=== PATIENT | female | born 1960 | race Caucasian/White ===

== ENCOUNTER 2022-12-16 14:09 | Emergency (ER) | payer MEDICAID ==
[~2022-12-16] VITALS: Ht 177.8 cm; Wt 58.2 kg
[~2022-12-16 14:09] MED LIST: OXYC-150 PO
[2022-12-16 14:10] VITALS: BP 136/93
[2022-12-16] MEDS ORDERED: AMOX-117 PO (15:41)
[2022-12-16] MEDS ORDERED: amox tr/potassium clavulanate 875/125mg TAB PO ONE (15:45)
== END 2022-12-16 15:55 | disposition home or self-care (01) ==
LOC: ER 14:10
DX: K04.7 Periapical abscess without sinus (principal); G89.29 Other chronic pain; M54.9 Dorsalgia, unspecified
CPT/HCPCS: 99283

== ENCOUNTER 2023-01-20 10:40 | Emergency (ER) | payer MEDICAID ==
[~2023-01-20] VITALS: Ht 177.8 cm; Wt 61.4 kg
[2023-01-20 10:45] VITALS: BP 113/72
== END 2023-01-20 15:05 | disposition left against medical advice (07) ==
LOC: ER 10:40
DX: S00.531A Contusion of lip, initial encounter (principal); S10.93XA Contusion of unspecified part of neck, initial encounter; S00.219A Abrasion of unspecified eyelid and periocular area, initial encounter; Z53.21 Procedure and treatment not carried out due to patient leaving prior to being seen by health care provider; W01.0XXA Fall on same level from slipping, tripping and stumbling without subsequent striking against object, initial encounter; Y93.89 Activity, other specified; Y92.89 Other specified places as the place of occurrence of the external cause; Y99.8 Other external cause status
CPT/HCPCS: 99281

== ENCOUNTER 2023-01-23 09:38 | Emergency (ER) | payer MEDICAID ==
[~2023-01-23] VITALS: Ht 177.8 cm; Wt 59.1 kg
[2023-01-23 09:41] VITALS: BP 123/90
== END 2023-01-23 11:23 | disposition home or self-care (01) ==
LOC: ER 09:38
DX: M25.512 Pain in left shoulder (principal); Z56.0 Unemployment, unspecified
CPT/HCPCS: 71045; 99284

== ENCOUNTER 2024-10-08 16:02 | Inpatient (IN) | payer MEDICAID, OTHER ==
[~2024-10-08] VITALS: Ht 177.8 cm; Wt 49.0 kg
[2024-10-08] MEDS: HYDROcodone/acetaminophen 10/325mg tab PO ONE (16:42)
[2024-10-08] MEDS ORDERED: potassium Cl 20 mEq SR tablet PO PRN (17:45)
[2024-10-08] MEDS ORDERED: magnesium hydroxide 30ml (MOM) UD suspension PO PRN (17:45)
[2024-10-08] MEDS ORDERED: magnesium sulf-water 4G/100mL 100 ML IV PRN (17:45)
[2024-10-08] MEDS ORDERED: ondansetron/PF 4mg/2ml inj IV PRN (17:45)
[2024-10-08] MEDS ORDERED: magnesium sulf-water 2g/50mL 50 ML IV PRN (17:45)
[2024-10-08] MEDS ORDERED: potassium Cl 40MEQ/1/2NS 520ml 520 ML IV PRN (17:45)
[2024-10-08] MEDS ORDERED: mag hydrox/Alum hydrox/simeth 30ml oral suspension PO PRN (17:45)
[2024-10-08] MEDS ORDERED: HYDROcodone/acetaminophen 5mg/325mg tablet PO PRN (17:45)
[2024-10-08] MEDS ORDERED: acetaminophen 325mg tablet PO PRN (17:45)
[2024-10-08] MEDS: morphine 4 MG/ML inj SYRINge IV ONE (18:03)
[2024-10-08] MEDS: ondansetron/PF 4mg/2ml inj IV ONE (18:03)
[2024-10-08] MEDS: ringers solution, lacted 1,000 ML IV SCH (18:15)
[2024-10-08 18:24] LABS: APTT 26 SECONDS (22-32); PROTHROMBIN TIME 10.6 SECONDS (9.0-12.0)
[2024-10-08 18:27] LABS: BASOPHILS % (AUTO) 0.2 % (0-1); EOSINOPHILS % (AUTO) 0.1 % (0-6); HEMATOCRIT 41.9 % (35.0-45.0); HEMOGLOBIN 14.1 g/dl (12.0-16.0); LYMPHOCYTES # (AUTO) 0.9 X10'3 (1.1-4.8); LYMPHOCYTES % (AUTO) 6.8 % (21-51); MEAN CORPUSCULAR HEMOGLOBIN 32.9 PG (27.0-31.0); MEAN CORPUSCULAR HGB CONC 33.8 g/dL (33.0-36.5); MEAN CORPUSCULAR VOLUME 97.6 FL (78-98); MONOCYTES # (AUTO) 0.7 X10'3 (0-0.9); MONOCYTES % (AUTO) 5.3 % (2-12); NEUTROPHILS # (AUTO) 11.3 X10'3 (1.8-7.7); NEUTROPHILS % (AUTO) 87.6 % (42-75); PLATELET COUNT 158 X10'3 (140-440); RED BLOOD COUNT 4.29 X10'6 (4.20-5.60); RED CELL DISTRIBUTION WIDTH 13.5 % (11.5-14.5); WHITE BLOOD COUNT 12.9 X10'3 (4.5-11.0)
[2024-10-08] MEDS: nicotine 21mg patch - 24 hr TD ONE (19:23)
[2024-10-08] MEDS: docusate sod 100mg capsule PO SCH (19:23)
[2024-10-08 19:55] LABS: ALANINE AMINOTRANSFERASE 35 U/L (12-78); ALBUMIN 3.7 G/DL (3.4-5.0); ALBUMIN/GLOBULIN RATIO 1.1 (1.1-1.5); ALKALINE PHOSPHATASE 81 IU/L (46-116); ANION GAP 10 (8-16); ASPARTATE AMINO TRANSFERASE 25 U/L (10-37); BLOOD UREA NITROGEN 12 MG/DL (7-18); BUN/CREATININE RATIO 29.3 (10.0-20.0); CALCIUM 8.8 MG/DL (8.5-10.1); CHLORIDE 104 MMOL/L (99-107); CREATININE 0.41 MG/DL (0.40-0.90); GLUCOSE 109 MG/DL (70-104); SODIUM 140 MMOL/L (135-145); TOTAL CARBON DIOXIDE 26.4 MMOL/L (24-32); TOTAL PROTEIN 7.2 G/DL (6.4-8.2); eCRCL 107 ML/MIN; eGFR > 90 ML/MIN
[2024-10-08] MEDS: K and/or MAG REPLACEMENT MC SCH (20:22)
[2024-10-08] MEDS: HYDROcodone/acetaminophen 10/325mg tab PO PRN (21:09)
[2024-10-08] MEDS ORDERED: SERT25TA PO (21:36)
[2024-10-08] MEDS ORDERED: TRAZ150T78 PO (21:38)
[2024-10-08 22:15] VITALS: BP 141/80; PULSE 81; RESP 19; TEMP 99.4; O2SAT 96
[2024-10-08] MEDS: HYDROmorphone inj. 0.5 MG/0.5 ML DISP.SYRIN IV PRN (22:47)
[2024-10-09] VITALS (22 sets, daily range): BP systolic 97–135; BP diastolic 49–114; PULSE 65–84; RESP 12–17; TEMP 97.8–98.8; O2SAT 94–100
[2024-10-09 05:25] LABS: BILIRUBIN,URINE NEGATIVE (Neg); CLARITY,URINE CLEAR (Clear); COLOR,URINE YELLOW (Yellow); GLUCOSE, URINE NEGATIVE (Neg); KETONES,URINE NEGATIVE (Neg); LEUKOCYTE ESTERASE ,URINE NEGATIVE (Neg); NITRITES, URINE NEGATIVE (Neg); OCCULT BLOOD,URINE NEGATIVE (Neg); PROTEIN,URINE TRACE mg/dl (Neg); UROBILINOGEN,URINE 0.2 E.U/dL (0.2-1.0)
[2024-10-09 06:09] LABS: UA COLLECTION TYPE CLN CATCH MIDSTREAM
[2024-10-09 06:11] LABS: ALANINE AMINOTRANSFERASE 30 U/L (12-78); ALBUMIN 3.2 G/DL (3.4-5.0); ALBUMIN/GLOBULIN RATIO 1.1 (1.1-1.5); ALKALINE PHOSPHATASE 68 IU/L (46-116); ANION GAP 4 (8-16); ASPARTATE AMINO TRANSFERASE 16 U/L (10-37); BILIRUBIN,TOTAL 1.1 MG/DL (0.1-1.0); BLOOD UREA NITROGEN 10 MG/DL (7-18); BUN/CREATININE RATIO 28.6 (10.0-20.0); CALCIUM 8.4 MG/DL (8.5-10.1); CHLORIDE 106 MMOL/L (99-107); CREATININE 0.35 MG/DL (0.40-0.90); GLUCOSE 90 MG/DL (70-104); MAGNESIUM 1.9 MG/DL (1.5-2.4); POTASSIUM 3.7 MMOL/L (3.5-5.1); SODIUM 140 MMOL/L (135-145); TOTAL CARBON DIOXIDE 30.1 MMOL/L (24-32); TOTAL PROTEIN 6.2 G/DL (6.4-8.2); eCRCL 126 ML/MIN; eGFR > 90 ML/MIN
[2024-10-09 06:11] LABS: RBC,URINE NONE SEEN /HPF (0-2); WBC,URINE 0-4 /HPF (0-4)
[2024-10-09 06:12] LABS: BACTERIA,URINE FEW /HPF (Neg); SQUAMOUS EPITHELIAL CELL,UR FEW /LPF (FEW)
[2024-10-09 06:22] LABS: BASOPHILS % (AUTO) 0.2 % (0-1); EOSINOPHILS # (AUTO) 0.1 X10'3 (0-0.9); EOSINOPHILS % (AUTO) 1.4 % (0-6); HEMATOCRIT 37.9 % (35.0-45.0); HEMOGLOBIN 12.9 g/dl (12.0-16.0); LYMPHOCYTES # (AUTO) 2.8 X10'3 (1.1-4.8); LYMPHOCYTES % (AUTO) 30.3 % (21-51); MEAN CORPUSCULAR HEMOGLOBIN 33.4 PG (27.0-31.0); MEAN CORPUSCULAR VOLUME 98.1 FL (78-98); MEAN PLATELET VOLUME 9.7 FL (7.4-10.4); MONOCYTES # (AUTO) 0.6 X10'3 (0-0.9); MONOCYTES % (AUTO) 7.1 % (2-12); NEUTROPHILS # (AUTO) 5.5 X10'3 (1.8-7.7); PLATELET COUNT 144 X10'3 (140-440); RED BLOOD COUNT 3.86 X10'6 (4.20-5.60); RED CELL DISTRIBUTION WIDTH 13.2 % (11.5-14.5); WHITE BLOOD COUNT 9.1 X10'3 (4.5-11.0)
[2024-10-09] MEDS: nicotine 21mg patch - 24 hr TD SCH (07:30)
[2024-10-09] MEDS ORDERED: hydrALAZINE 20mg/ml inj. IV PRN (08:20)
[2024-10-09] MEDS ORDERED: BUPIVAcaine 0.5% inj/PF 30 ML ONE (15:45)
[2024-10-09] MEDS ORDERED: ondansetron/PF 4mg/2ml inj IV PRN (15:55)
[2024-10-09] MEDS ORDERED: labetalol 20mg/4ml (5mg/ml) syringe IV PRN (15:55)
[2024-10-09] MEDS ORDERED: HYDROmorphone/PF 0.2 MG/ML SYRINGE IV PRN ×2 (15:55)
[2024-10-09] MEDS: ringers solution, lacted 1,000 ML IV SCH (15:55)
[2024-10-09] MEDS ORDERED: sevoflurane 250ml liquid IH ONE (16:16)
[2024-10-09] MEDS ORDERED: midazolam 1 mg/ML 2ml injection ONE (16:17)
[2024-10-09] MEDS ORDERED: fentaNYL/PF 50MCG/1 ML 2ML syringe ONE ×2 (16:17→16:18)
[2024-10-09] MEDS ORDERED: propofol inj 20 ML IV ONE (16:20)
[2024-10-09] MEDS ORDERED: ceFAZolin 1000mg inj ONE ×2 (16:29)
[2024-10-09] MEDS: acetaminophen 1,000mg/100ml IV 100 ML IV PRN (17:16)
[2024-10-09] MEDS: morphine 2 MG/ML inj. syringe IV PRN (17:24)
[2024-10-09] MEDS: morphine 4 MG/ML inj SYRINge IV PRN (17:58)
[2024-10-10] VITALS (8 sets, daily range): BP systolic 108–141; BP diastolic 60–75; PULSE 72–82; RESP 15–21; TEMP 97.5–99.6; O2SAT 95–99
[2024-10-10] MEDS: ceFAZolin/D5W- 1GM premix 50 ML IV SCH (00:17)
[2024-10-10 06:15] LABS: BASOPHILS % (AUTO) 0.3 % (0-1); EOSINOPHILS # (AUTO) 0.2 X10'3 (0-0.9); EOSINOPHILS % (AUTO) 2.2 % (0-6); HEMATOCRIT 35.3 % (35.0-45.0); HEMOGLOBIN 11.9 g/dl (12.0-16.0); LYMPHOCYTES % (AUTO) 21.4 % (21-51); MEAN CORPUSCULAR HEMOGLOBIN 33.6 PG (27.0-31.0); MEAN CORPUSCULAR HGB CONC 33.8 g/dL (33.0-36.5); MEAN CORPUSCULAR VOLUME 99.2 FL (78-98); MEAN PLATELET VOLUME 9.7 FL (7.4-10.4); MONOCYTES # (AUTO) 0.7 X10'3 (0-0.9); NEUTROPHILS # (AUTO) 6.6 X10'3 (1.8-7.7); NEUTROPHILS % (AUTO) 69.1 % (42-75); PLATELET COUNT 132 X10'3 (140-440); RED BLOOD COUNT 3.56 X10'6 (4.20-5.60); RED CELL DISTRIBUTION WIDTH 13.2 % (11.5-14.5); WHITE BLOOD COUNT 9.5 X10'3 (4.5-11.0)
[2024-10-10 06:41] LABS: ALANINE AMINOTRANSFERASE 20 U/L (12-78); ALBUMIN 2.8 G/DL (3.4-5.0); ALBUMIN/GLOBULIN RATIO 0.9 (1.1-1.5); ALKALINE PHOSPHATASE 60 IU/L (46-116); ANION GAP 12 (8-16); ASPARTATE AMINO TRANSFERASE 17 U/L (10-37); BILIRUBIN,TOTAL 0.8 MG/DL (0.1-1.0); BLOOD UREA NITROGEN 8 MG/DL (7-18); CALCIUM 8.3 MG/DL (8.5-10.1); CHLORIDE 105 MMOL/L (99-107); GLUCOSE 69 MG/DL (70-104); MAGNESIUM 1.7 MG/DL (1.5-2.4); POTASSIUM 3.7 MMOL/L (3.5-5.1); SODIUM 142 MMOL/L (135-145); TOTAL CARBON DIOXIDE 24.7 MMOL/L (24-32); TOTAL PROTEIN 5.8 G/DL (6.4-8.2); eCRCL 110 ML/MIN; eGFR > 90 ML/MIN
[2024-10-10] MEDS: acetaminophen 325mg tablet PO PRN (10:58)
[2024-10-10] MEDS ORDERED: ACET-1008 PO (11:56)
[2024-10-10] MEDS ORDERED: PANT40TA54 PO (12:01)
[2024-10-10] MEDS ORDERED: APIX2.5T PO (12:01)
[2024-10-10] MEDS ORDERED: AMOX-419 PO (12:01)
[2024-10-11 06:00] VITALS: BP 118/71; PULSE 64; RESP 14; TEMP 98.1; O2SAT 96
[2024-10-11 07:13] LABS: HEMOGLOBIN 10.9 g/dl (12.0-16.0); MEAN CORPUSCULAR HEMOGLOBIN 33.4 PG (27.0-31.0); MEAN CORPUSCULAR HGB CONC 34.1 g/dL (33.0-36.5); MEAN PLATELET VOLUME 9.1 FL (7.4-10.4); NEUTROPHILS % (AUTO) 60.4 % (42-75); PLATELET COUNT 139 X10'3 (140-440); RED BLOOD COUNT 3.27 X10'6 (4.20-5.60); RED CELL DISTRIBUTION WIDTH 12.9 % (11.5-14.5); WHITE BLOOD COUNT 7.4 X10'3 (4.5-11.0)
[2024-10-11 07:14] LABS: BASOPHILS % (AUTO) 0.3 % (0-1); EOSINOPHILS # (AUTO) 0.2 X10'3 (0-0.9); EOSINOPHILS % (AUTO) 3.3 % (0-6); LYMPHOCYTES % (AUTO) 27.2 % (21-51); MONOCYTES # (AUTO) 0.6 X10'3 (0-0.9); MONOCYTES % (AUTO) 8.8 % (2-12); NEUTROPHILS # (AUTO) 4.5 X10'3 (1.8-7.7)
[2024-10-11 07:55] LABS: ALANINE AMINOTRANSFERASE 16 U/L (12-78); ALBUMIN 2.6 G/DL (3.4-5.0); ALBUMIN/GLOBULIN RATIO 0.9 (1.1-1.5); ALKALINE PHOSPHATASE 54 IU/L (46-116); ANION GAP 7 (8-16); ASPARTATE AMINO TRANSFERASE 14 U/L (10-37); BILIRUBIN,TOTAL 0.6 MG/DL (0.1-1.0); BLOOD UREA NITROGEN 4 MG/DL (7-18); BUN/CREATININE RATIO 13.3 (10.0-20.0); CALCIUM 8.2 MG/DL (8.5-10.1); CHLORIDE 108 MMOL/L (99-107); GLUCOSE 96 MG/DL (70-104); MAGNESIUM 1.7 MG/DL (1.5-2.4); POTASSIUM 3.2 MMOL/L (3.5-5.1); SODIUM 143 MMOL/L (135-145); TOTAL CARBON DIOXIDE 27.6 MMOL/L (24-32); TOTAL PROTEIN 5.6 G/DL (6.4-8.2); eCRCL 147 ML/MIN; eGFR > 90 ML/MIN
[2024-10-11 08:00] VITALS: RESP 14; O2SAT 96
[2024-10-11] MEDS: potassium Cl 20 mEq SR tablet PO PRN ×2 (09:31→19:01)
[2024-10-11 10:00] VITALS: BP 130/79; PULSE 79; RESP 14; TEMP 97.5; O2SAT 94
[2024-10-11] MEDS ORDERED: potassium Cl 20 mEq SR tablet PO PRN (17:45)
[2024-10-11] MEDS ORDERED: magnesium sulf-water 2g/50mL 50 ML IV PRN (17:45)
[2024-10-11] MEDS ORDERED: magnesium Cl slow-release 64mg tablet PO PRN (17:45)
[2024-10-11] MEDS ORDERED: potassium Cl 40MEQ/1/2NS 520ml 520 ML IV PRN (17:45)
[2024-10-11] MEDS ORDERED: magnesium sulf-water 4G/100mL 100 ML IV PRN (17:45)
[2024-10-11 18:00] VITALS: BP 130/75; PULSE 95; RESP 16; TEMP 98.1; O2SAT 97
[2024-10-11] MEDS: K and/or MAG REPLACEMENT MC SCH (20:00)
[2024-10-11 20:30] VITALS: RESP 15; O2SAT 97
[2024-10-11 22:00] VITALS: BP 139/77; PULSE 75; RESP 15; TEMP 97.5; O2SAT 96
[2024-10-12] MEDS: traZODone 150mg tablet PO SCH (00:39)
[2024-10-12 06:00] VITALS: BP 125/72
[2024-10-12 06:06] LABS: BASOPHILS % (AUTO) 0.2 % (0-1); EOSINOPHILS # (AUTO) 0.3 X10'3 (0-0.9); EOSINOPHILS % (AUTO) 4.5 % (0-6); HEMATOCRIT 31.9 % (35.0-45.0); HEMOGLOBIN 11.1 g/dl (12.0-16.0); LYMPHOCYTES # (AUTO) 2.2 X10'3 (1.1-4.8); MEAN CORPUSCULAR HEMOGLOBIN 33.8 PG (27.0-31.0); MEAN CORPUSCULAR HGB CONC 34.7 g/dL (33.0-36.5); MEAN CORPUSCULAR VOLUME 97.3 FL (78-98); MEAN PLATELET VOLUME 8.7 FL (7.4-10.4); MONOCYTES # (AUTO) 0.6 X10'3 (0-0.9); NEUTROPHILS # (AUTO) 3.9 X10'3 (1.8-7.7); NEUTROPHILS % (AUTO) 55.3 % (42-75); PLATELET COUNT 152 X10'3 (140-440); RED BLOOD COUNT 3.28 X10'6 (4.20-5.60); RED CELL DISTRIBUTION WIDTH 12.7 % (11.5-14.5); WHITE BLOOD COUNT 7.1 X10'3 (4.5-11.0)
[2024-10-12 06:27] LABS: ALANINE AMINOTRANSFERASE 18 U/L (12-78); ALBUMIN 2.6 G/DL (3.4-5.0); ALBUMIN/GLOBULIN RATIO 0.8 (1.1-1.5); ALKALINE PHOSPHATASE 56 IU/L (46-116); ANION GAP 7 (8-16); ASPARTATE AMINO TRANSFERASE 13 U/L (10-37); BILIRUBIN,TOTAL 0.7 MG/DL (0.1-1.0); BLOOD UREA NITROGEN 3 MG/DL (7-18); BUN/CREATININE RATIO 11.5 (10.0-20.0); CALCIUM 8.4 MG/DL (8.5-10.1); CHLORIDE 109 MMOL/L (99-107); CREATININE 0.26 MG/DL (0.40-0.90); GLUCOSE 92 MG/DL (70-104); MAGNESIUM 1.7 MG/DL (1.5-2.4); POTASSIUM 3.9 MMOL/L (3.5-5.1); SODIUM 143 MMOL/L (135-145); TOTAL CARBON DIOXIDE 27.1 MMOL/L (24-32); TOTAL PROTEIN 5.7 G/DL (6.4-8.2); eCRCL 169 ML/MIN; eGFR > 90 ML/MIN
[2024-10-12 10:00] VITALS: BP 101/61; PULSE 88; RESP 19; TEMP 97.8; O2SAT 95
[2024-10-12] MEDS ORDERED: lactose-reduced food (Ensure Enlive) - 237ml bottle PO SCH (13:00)
[2024-10-12 13:59] VITALS: RESP 15
== END 2024-10-12 18:06 | disposition home or self-care (01) | DRG 481 ==
LOC: ER 16:03 → ED HOLD 17:48 → EDBEDREQ 19:54 → ORTHO 4S 22:09
PROVIDERS: ADMIT Nurse Practitioner Family; ATTEND Nurse Practitioner Family
PROC: BW2G1ZZ Computerized Tomography (CT Scan) of Pelvic Region using Low Osmolar Contrast (ICD-10-PCS; 2024-10-08)
PROC: 0QH634Z Insertion of Internal Fixation Device into Right Upper Femur, Percutaneous Approach (ICD-10-PCS; principal; 2024-10-09 16:16)
DX: S72.091A Other fracture of head and neck of right femur, initial encounter for closed fracture (principal); S42.291A Other displaced fracture of upper end of right humerus, initial encounter for closed fracture; F17.210 Nicotine dependence, cigarettes, uncomplicated; G47.00 Insomnia, unspecified; G89.29 Other chronic pain; M54.50 Low back pain, unspecified; W18.39XA Other fall on same level, initial encounter; Y93.89 Activity, other specified; Y92.89 Other specified places as the place of occurrence of the external cause; Y99.8 Other external cause status
CPT/HCPCS: 96374; 96375; 99285; Z7506; 36415; 71045; 72170; 72192; 73030; 73200; 73502; 80053; 81001; 82948; 83735; 85025; 85610; 85730; 87081; 93005; 97110; 97116; 97161; 97530; A4615; A4618; A7000; C1713; C1769; G0378; J0131; J0690; J1171; J2250; J2270; J2405; J2704; J3010; J7120